=== PATIENT | male | born 1985 | race Two or more races ===

== ENCOUNTER 2022-03-26 07:52 | Outpatient (CLI) | payer SELFPAY ==
[2022-03-26 10:03] LABS: Cholesterol* 194 mg/dL (90-199); Glucose* 86 mg/dL (60-115); HDL Cholesterol* 32 mg/dL (>=40); LDL Cholesterol Calculated 102 mg/dL (<100); Triglycerides* 299 mg/dL (40-149)
== END 2022-03-26 07:53 | disposition home or self-care (01) ==
PROVIDERS: PCP Family Medicine; Visit Provider Family Medicine
DX: Z00.00 Encounter for general adult medical examination without abnormal findings (principal); Z13.1 Encounter for screening for diabetes mellitus; Z13.6 Encounter for screening for cardiovascular disorders
CPT/HCPCS: 80061; 82947